=== PATIENT | male | born 1990 | race Asian ===

== ENCOUNTER 2024-08-16 00:12 | Emergency (ER) | payer BC ==
[~2024-08-16] VITALS: Ht 170.2 cm; Wt 60.0 kg
[2024-08-16 00:34] VITALS: BP 128/89; PULSE 112; RESP 17; TEMP 97.9; O2SAT 98
== END 2024-08-16 01:21 ==
LOC: ER 00:14
DX: Z02.89 Encounter for other administrative examinations (principal); F17.200 Nicotine dependence, unspecified, uncomplicated; Z72.89 Other problems related to lifestyle; V89.2XXA Person injured in unspecified motor-vehicle accident, traffic, initial encounter; Y93.89 Activity, other specified; Y92.89 Other specified places as the place of occurrence of the external cause; Y99.8 Other external cause status
CPT/HCPCS: 99283